=== PATIENT | female | born 1980 | race Caucasian/White ===

== ENCOUNTER 2017-04-10 01:57 | Emergency (ER) | payer SELFPAY ==
[~2017-04-10] VITALS: Ht 172.7 cm; Wt 65.5 kg
[2017-04-10 01:59] VITALS: BP 116/77
[2017-04-10] MEDS ORDERED: LIDOCAINE 1%, 20ML ONE (02:39)
[2017-04-10] MEDS ORDERED: DIPH,PERTUSS(ACELL),TET VAC/PF 0.5 ML IM-VACC ONE ×2 (02:48→03:00)
[2017-04-10] MEDS ORDERED: LIDOCAINE 1%, 20ML SQ ONE (03:00)
[2017-04-10] MEDS ORDERED: BACITRACIN ZINC OINT 500U/GM, 0.9 GM ONE ×2 (03:03→03:13)
== END 2017-04-10 03:21 | disposition home or self-care (01) ==
LOC: ED 03:15
DX: S61.011A Laceration without foreign body of right thumb without damage to nail, initial encounter (principal); F17.210 Nicotine dependence, cigarettes, uncomplicated; Z59.0 Homelessness; Z23 Encounter for immunization; X58.XXXA Exposure to other specified factors, initial encounter; Y93.89 Activity, other specified; Y99.8 Other external cause status; Y92.488 Other paved roadways as the place of occurrence of the external cause
CPT/HCPCS: 12001; 90471; 90715